=== PATIENT | female | born 1955 | race Hispanic/Latino ===

== ENCOUNTER 2023-07-14 08:37 | Observation (INO) | payer MEDICARE ==
[2023-07-08 10:49] LABS: Absolute Lymphocytes (CBC) 1.5 K/uL (0.7-4.9); Hematocrit 39.9 % (36.0-45.0); Lymphocytes % 24.6 % (15.3-44.8); MPV 8.7 fL (7.6-11.3); Platelets 212 thou/uL (152-406); RBC Red Blood Cell Count 4.34 M/uL (3.86-4.86)
[2023-07-08 10:50] LABS: Potassium 3.8 mEq/L (3.5-5.1)
--- NOTE | 2023-07-08 10:58 | RAD REPORT ---
EXAM DESCRIPTION: RAD - Chest Pa And Lat (2 Views) - 07/08/2023 9:35 am CLINICAL HISTORY: Pre op pending knee arthroplasty. Hypertension COMPARISON: No comparisons TECHNIQUE: PA and lateral views of the chest were obtained. FINDINGS: The lungs are clear. Heart size is normal and central vasculature is within normal limits. No pleural effusion or pneumothorax seen. No acute bony finding noted. IMPRESSION: No acute cardiopulmonary process.
[2023-07-08 11:05] LABS: Protime INR 0.99
--- NOTE | 2023-07-08 15:10 | EKG ---
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
[2023-07-14] MEDS ORDERED: NA CHLORIDE 0.9% 1,000 ML ONE (08:51)
[2023-07-14] MEDS ORDERED: CEFAZOLIN SODIUM 1 GM/VIAL ONE (08:51)
[2023-07-14] MEDS ORDERED: LIDOCAINE 1% MPF 5 ML VIAL ONE (09:27)
[2023-07-14] MEDS ORDERED: dexAMETHasone 10 MG/ML VIAL ONE ×2 (09:27→10:42)
[2023-07-14] MEDS ORDERED: FENTANYL CITR 100 MCG/2 ML ONE (09:28)
[2023-07-14] MEDS ORDERED: EPINEPHRINE 1 MG/ML VIAL ONE (09:28)
[2023-07-14] MEDS ORDERED: DEXMEDETOMIDINE HCL 200 MCG/2 ML VIAL ONE (09:28)
[2023-07-14] MEDS ORDERED: BUPIVACAINE 0.5% PF 10 ML VIAL ONE (09:28)
[2023-07-14] MEDS ORDERED: MAGNESIUM SULFATE 1 gm IVPB 1 GM/100 ML BAG IV ONE (09:29)
[2023-07-14] MEDS ORDERED: propofoL 200 MG/20 ML VIAL IV ONE ×3 (09:29→13:04)
[2023-07-14] MEDS ORDERED: BUPIVACAINE 0.25% PF 30 ML VIAL ONE (09:29)
[2023-07-14] MEDS ORDERED: Oxycodone HCl/Acetaminophen 5/325 MG TAB ONE (09:32)
[2023-07-14] MEDS ORDERED: ACETAMINOPHEN 500 MG TAB ONE (09:33)
[2023-07-14] MEDS ORDERED: CELECOXIB 100 MG CAPSULE ONE (09:33)
[2023-07-14] MEDS ORDERED: ONDANSETRON 4 MG/2 ML VIAL ONE ×2 (10:19→10:42)
[2023-07-14] MEDS ORDERED: ROCURONIUM 50 MG/5 ML VIAL IV ONE (10:42)
[2023-07-14] MEDS ORDERED: SUCCINYLCHOLINE 20 MG/ML (10 ML) IV ONE (10:59)
[2023-07-14] MEDS ORDERED: LIDOCAINE 2% MPF 5 ML VIAL ONE (11:42)
[2023-07-14] MEDS ORDERED: KETAMINE HCL IN 0.9 % NACL 50 MG/5 ML SYRINGE IV ONE (11:42)
[2023-07-14] MEDS ORDERED: TRANEXAMIC ACID 1,000 MG/10 ML VIAL IV ONE (11:47)
--- NOTE | 2023-07-14 13:24 | P.BOP ---
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
[2023-07-14] MEDS ORDERED: HYDROCODONE/APAP 7.5/325 MG TAB PO PRN (13:26)
[2023-07-14] MEDS ORDERED: ACETAMINOPHEN 325 MG TABLET PO PRN (13:26)
[2023-07-14] MEDS ORDERED: DOCUSATE NA 100 MG CAP PO PRN (13:26)
[2023-07-14] MEDS ORDERED: ONDANSETRON 4 MG/2 ML VIAL IV PRN (13:26)
[2023-07-14] MEDS ORDERED: TRAMADOL HCL 50 MG TAB PO PRN (13:29)
--- NOTE | 2023-07-14 14:22 | RAD REPORT ---
EXAM DESCRIPTION: RAD - Knee Left 2 View - 07/14/2023 2:08 pm CLINICAL HISTORY: Post Op COMPARISON: No comparisons FINDINGS: Left total knee arthroplasty is present. Mild soft tissue swelling is present in the regio n. Skin rachel are noted. A small amount of air is noted in the joint space. No unexpected immediate postoperative finding.
--- OUTSIDE RECORDS SUMMARY | 2023-07-14 15:03 | XMS REPORT | Continuity of Care Document ---
Author Name Unknown Address [address] [place] [address] [facility] Address [address] [place] [address] Care Team Providers Care Desulfurizer Operator Name Role Phone Pina Barlow Attending Clinician Unavailable Girffin Griggs Attending Clinician Unavailable [email or web address] Attending Clinician Denisse Villela Attending Clinician [email or web address]_S Admitting Clinician Francisco jeffers Payers Payer Name Policy Type Policy Number Effective Date Expirati on Date Source [facility] (MEDICARE REPLACEMENT HMO) [id number] 00:00:00 Problems Condition Name Condition Details Condition Category Status Onset Date Resolution Date Last Treatment Date Treating Clinician Comments Source [id number] Primary osteoarthr itis of left knee Problem [facility] Social History Social Habit Start Date Stop Date Quantity Comments Source History of Tobacco Use [facility] Sex Assigned At [facility] Smoking Status Start Date Stop Date Source Never Smoker [facility] Medications Ordered Medication Name Filled Medication Name Start Date Stop Date Current Medication? Ordering Clinician Indication Dosage Frequency Signature (SIG) Comments Components Source Hyalgan 20 mg Hyalgan 20 mg 02-10 00:00: 00 No 20mg [facility] Hyalgan 20 mg Hyalgan 20 mg 0 02-10 00:00: 00 No 20mg [facility] Hyalgan 20 mg Hyalgan 20 mg 0 02-03 00:00: 00 No 20mg [facility] Hyalgan 20 mg Hyalgan 20 mg 0 02-03 00:00: 00 No 20mg [facility] Hyalgan 20 mg Hyalgan 20 mg 0 02-03 00:00: 00 No 20mg [facility] Bupivicaine [place] Bupivicaine [place] 01-19 00:00: 00 No 2.5mg [facility] Hyalgan 20 mg Hyalgan 20 mg 0 01-19 00:00: 00 No 20mg [facility] Kenalog (Triamcinol one) Kenalog (Triamcinol one) 0 01-19 00:00: 00 No 40mg [facility] Bupivicaine [place] Bupivicaine [place] 01-19 00:00: 00 No 2.5mg [facility] Hyalgan 20 mg Hyalgan 20 mg 0 01-19 00:00: 00 No 20mg [facility] Kenalog (Triamcinol one) Kenalog (Triamcinol one) 0 01-19 00:00: 00 No 40mg [facility] Bupivicaine [place] Bupivicaine [place] 0 01-19 00:00: 00 No 2.5mg [facility] Hyalgan 20 mg Hyalgan 20 mg 0 - 00:00: 00 No 20mg [facility] Kenalog (Triamcinol one) Kenalog (Triamcinol one) 0 6- 00:00: 00 No 40mg [facility] Bupivicaine [place] Bupivicaine [place] 01-19 00:00: 00 No 2.5mg [facility] Hyalgan 20 mg Hyalgan 20 mg 01-19 00:00: 00 No 20mg [facility] Kenalog (Triamcinol one) Kenalog (Triamcinol one) 01-19 00:00: 00 No 40mg [facility] Lisinopril Lisinopril No Lisinopril Rosuvastati n Calcium Rosuvastati n Calcium No Rosuvastat in Calcium Aleve Aleve No Aleve Metformin & Diet Manage Prod Metformin & Diet Manage Prod No Metformin & Diet Manage Prod Aleve Aleve No Aleve Metformin & Diet Manage Prod Metformin & Diet Manage Prod No Metformin & Diet Manage Prod Lisinopril Lisinopril No Lisinopril Rosuvastati n Calcium Rosuvastati n Calcium No Rosuvastat in Calcium Aleve Aleve No Aleve Lisinopril Lisinopril No Lisinopril Rosuvastati n Calcium Rosuvastati n Calcium No Rosuvastat in Calcium Metformin & Diet Manage Prod Metformin & Diet Manage Prod No Metformin & Diet Manage Prod Metformin & Diet Manage Prod Metformin & Diet Manage Prod No Metformin & Diet Manage Prod Aleve Aleve No Aleve Rosuvastati n Calcium Rosuvastati n Calcium No Rosuvastat in Calcium Lisinopril Lisinopril No Lisinopril Vital Signs Vital Name Observation Time Observation Value Comments S ource height 2022-09-03 10:30:00 62 [in_i] Commo n [facility] weight 2022-09-03 10:30:00 170 [lb_av] Comm on [facility] temperature 2022-09-03 10:30:00 98.1 [degF] Com mon [facility] bmi 2022-09-03 10:30:00 31.09 kg/m2 Comm on [facility] blood pressure systolic 2022-09-03 10:30:00 140 mm[Hg] Common [facility] blood pressure diastolic 2022-09-03 10:30:00 90 mm[Hg] [facility] height 2022-02-10 15:45:00 62 [in_i] Commo n [facility] weight 2022-02-10 15:45:00 154.1 [lb_av] Co mmon [facility] temperature 2022-02-10 15:45:00 97.4 [degF] Com mon [facility] bmi 2022-02-10 15:45:00 28.18 kg/m2 Comm on [facility] blood pressure systolic 2022-02-10 15:45:00 132 mm[Hg] Common [facility] blood pressure diastolic 2022-02-10 15:45:00 79 mm[Hg] [facility] height 2022-02-03 15:00:00 62 [in_i] Commo n [facility] weight 2022-02-03 15:00:00 151 [lb_av] Comm on [facility] bmi 2022-02-03 15:00:00 27.62 kg/m2 Comm on [facility] blood pressure systolic 2022-02-03 15:00:00 110 mm[Hg] Common [facility] blood pressure diastolic 2022-02-03 15:00:00 70 mm[Hg] [facility] height 2022-01-19 10:00:00 62 [in_i] Commo n [facility] weight 2022-01-19 10:00:00 151.9 [lb_av] Co mmon [facility] temperature 2022-01-19 10:00:00 97.3 [degF] Com mon [facility] bmi 2022-01-19 10:00:00 27.78 kg/m2 Comm on [facility] blood pressure systolic 2022-01-19 10:00:00 111 mm[Hg] Common [facility] blood pressure diastolic 2022-01-19 10:00:00 69 mm[Hg] [facility] Encounters Start Date/Time End Date/Time Encounter Type Admission Type Attending Clinicians Care Facility Care Department Encounter ID Source 2022-09-04 09:18:03 Outpatient Pina Barlow [facility] [id number] [facility] 2022-09-03 14:39:02 Outpatient Pina Barlow [facility] [id number] [facility] 2022-09-01 15:40:01 Outpatient Pina Barlow [facility] [id number] [facility] 2022-08-31 11:08:03 Outpatient Pina Barlow [facility] [id number] [facility] 2022-08-13 10:32:01 Outpatient Griffin Griggs [facility] [id number] [facility] 2022-02-03 14:53:03 Outpatient Griffin Griggs [facility] [id number] [facility] 2022-01-19 09:53:03 Outpatient [facility] [id number] [facility] 2023-06-08 00:00:00 2023-06-08 00:00:00 Outpatient [email or web address]_Ka diyala_S [facility] [id number] [facility] 2023-04-15 19:00:00 2023-04-15 19:20:00 Care [facility] Denisse Escalante [id number] [facility] 2022-12-28 18:50:00 2022-12-28 19:10:00 Care [facility] - [facility] Denisse Escalante [id number] [facility] 2022-12-12 00:00:00 2022-12-12 00:00:00 Outpatient DMG [facility] [id number] [facility] 2022-09-25 19:00:00 2022-09-25 20:30:00 PAULETTE Escalante [id number] [facility] 2022-09-03 00:00:00 2022-09-03 00:00:00 OFFICE VISIT ESTAB PT LEVEL 4 STLMLC STLMLC [id number] [facility] 2022-05-30 00:00:00 2022-05-30 00:00:00 Outpatient DMG [facility] [id number] [facility] 2022-02-10 00:00:00 2022-02-10 00:00:00 (IN/ASP) INJ ASP STLMLC STLMLC [id number] [facility] 2022-02-03 00:00:00 2022-02-03 00:00:00 (IN/ASP) INJ ASP STLMLC STLMLC [id number] [facility] 2022-01-19 00:00:00 2022-01-19 00:00:00 OFFICE VISIT NEW PT LEVEL 3 STLMLC STLMLC [id number] [facility]
[2023-07-14 15:27] VITALS: O2SAT 98
[2023-07-14] MEDS ORDERED: HYDROMORPHONE HCL 1 MG/ML INJ ONE (15:27)
[2023-07-14] MEDS: CEFAZOLIN 1 GM in NA CHLORIDE 0.9% 50 ML IVPB SCH (18:41)
[2023-07-14] MEDS: METFORMIN HCL 500 MG TAB PO SCH (18:41)
[2023-07-14 19:58] VITALS: BMI 29.6
[2023-07-14] MEDS ORDERED: ROSUVASTATIN 10 MG TAB PO SCH (21:00)
--- NOTE | 2023-07-14 21:46 | P.OP ---
Preoperative diagnosis: left knee osteoarthritis Postoperative diagnosis: same Primary procedure: left total knee arthroplasty Anesthesia: general Estimated blood loss: 50 cc Specimen: left knee bone remnants Findings: see dictation Operative Technique: Indication For Procedure: Fany is a 68 year-old female presenting to my clinic with signs, symptoms and x-ray findings consistent with severe left knee osteoarthritis. I discussed with the patient at length risks and benefits associated with operative and nonoperative treatment. She had failed conservative treatment measures and had significant difficulties with ADLs secondary to her pain. We discussed operative treatment and elected to proceed with left total knee arthroplasty. She expressed understanding and elected to proceed with operative treatment. Description Of Procedure: After informed consent was obtained, the patient was identified in the preoperative holding area. The left lower extremity was marked. The patient was then taken to the PACU where she underwent a left lower extremity adductor canal block performed by Anesthesia. She was then taken to the operating room, transferred to the operating table in supine fashion, and placed under general anesthesia. The left lower extremity was then prepped and draped in usual sterile fashion. A time-out was initiated. The correct patient and procedure were confirmed and identified. The patient did receive her preoperative prophylactic antibiotics. The left lower extremity was then exsanguinated and tourniquet was inflated to 300 mmHg. Approximately 15 cm longitudinal incision was made centered over the anterior aspect of the left knee. Dissection was then taken to the extensor mechanism and a medial parapatellar arthrotomy was performed. The patella was everted and dislocated laterally and the knee was flexed in the fat pad. Medial and lateral meniscus and ACL were all excised exposing the distal femur. Excess hypertrophic synovi um was also excised within the suprapatellar pouch. The patient had an MRI of her left knee preoperatively for surgical planning and creation of cutting blocks. The cutting block was then placed over the distal femur and pins were then placed. The distal femoral cutting block was then placed over the pins. An kiko wing was then used to ensure proper depth cut and the distal femur was then cut. The chamfer cutting guide was then placed over the distal end of the femur. Anterior, posterior cuts as well as anterior and posterior chamfer cuts were then made again confirming proper depth of the cut using an Kiko wing. Excess bone remnants were then sent to pathology for further evaluation. Next, attention was taken to the proximal tibia. A tibial jig and tibial cutting block was then placed on proximal aspect of the left tibia and locked into position. Pins were then placed and alignment guide was then used to confirm proper alignment of the cut and then coronal and sagittal planes. Once this was confirmed, the cutting jig was placed over the pins and the proximal tibia was cut. Sizing trays were then selected and size 10 mm spacer was used and there was good overall balance in flexion and extension. Next, the trial implants were then placed using the size 5 standard CR femur and a size D tibia and an 11 mm CR poly. There was overall good range of motion and good stability. The trial implants were then removed. The wound was then irrigated thoroughly with normal saline and the knee was then injected with 20 cc of 0.5% Marcaine both in the posterior capsule and medial and lateral gutters as well as quadriceps tendon and periosteum. The tibia was then punched. The femur was drilled. The cement was then prepared on the back table. Cement was then placed first on the tibial surface followed by size D tibia. Excess cement was removed with [place] elevators. Size 5 standard CR femur was then placed on the distal femur after cement was placed on the distal femur. Excess cement was then removed and a size 11 mm CR trial poly was then placed. The knee was held in extension as the cement hardened. Undersurface of the patella was prepared debriding osteophytes using rongeurs. Cement was placed on the undersurface of the patella after it was cut and a size 29 patella was placed. Once the cement was hardened, the knee was ranged, there was good overall stability both in flexion, extension and as well as stability with varus and valgus stresses. Trial poly was then removed and a size 11 mm CR poly was then placed and locked into position. The knee was then ranged again. There was good overall range of motion both for flexion and extension with good stability. The wound was then irrigated again thoroughly with normal saline using pulse lavage. Tourniquet was let down. Hemostasis was achieved using Bovie electrocautery. Extensor mechanism was then approximated using a #1 Vicryl both in interrupted and running fashion. The fascia was then approximated using 0 Vicryl. Subcutaneous tissue was approximated with a 2-0 Vicryl. Skin was approximated using rachel. Sterile dressings were applied. The patient was awakened and transferred back in stable condition Complications: None Implants: Biomet Chris Persona 5 CR femur, D tibia, 29 patella, 10 CR poly Fluids & blood products: per anesthesia record; TT: 63 mins @ 300 mmHg Transferred to: Recovery Room Condition: Good
[2023-07-15] MEDS: CEFAZOLIN 1 GM in NA CHLORIDE 0.9% 50 ML IVPB SCH ×2 (00:30→09:21)
[2023-07-15] MEDS ORDERED: ENOXAPARIN 30 MG/0.3 ML SQ SCH (06:00)
[2023-07-15 07:29] LABS: Hematocrit 34.7 % (36.0-45.0)
[2023-07-15] MEDS: METFORMIN HCL 500 MG TAB PO SCH (08:59)
[2023-07-15] MEDS ORDERED: Dapagliflozin Propanediol [Farxiga] 10 MG Tablet PO SCH (09:00)
[2023-07-15] MEDS ORDERED: VITAMIN D 1000 UNIT TAB PO SCH (09:00)
[2023-07-15] MEDS ORDERED: CELECOXIB 100 MG CAPSULE PO SCH (09:00)
--- NOTE | 2023-07-15 10:37 | P.DS ---
Admission Date: 07/14/23 Discharge Date: 07/15/23 Disposition: DC HOME/HOME HEALTH CARE Discharge Condition: GOOD Reason for Admission: L TKA Consultations: none Procedures: left TKA 07/14/2023 Brief History of Present Illness: Lali is a 68-year-old female that was admitted postoperatively after left total knee arthroplasty on July 14, 2023. Hospital Course: Patient was admitted to floor in stable condition postoperatively. Physical therapy was consulted to aid with mobilization. She mobilize safely on July 15, 2023 with her pain control. She will be discharged with home health physical therapy. She was given Xarelto to take at home for DVT prophylaxis. She will follow-up in 2 weeks for staple removal. Vital Signs/Physical Exam: Temp Pulse Resp BP Pulse Ox 98.1 F 89 18 135/60 94 07/15/23 07:47 07/15/23 07:47 07/15/23 07:47 07/15/23 07:47 07/15/23 07:47 Laboratory Data at Discharge: WBC 6.10 thou/uL (4.3-10.9) 07/08/23 09:25 Hgb 11.6 g/dL (12.0-15.0) L D 07/15/23 06:40 Hct 34.7 % (36.0-45.0) L 07/15/23 06:40 Plt Count 212 thou/uL (152-406) 07/08/23 09:25 PT 10.9 SECONDS (9.5-12.5) 07/08/23 09:25 INR 0.99 07/08/23 09:25 APTT 37.6 SECONDS (24.3-36.9) H 07/08/23 09:25 Sodium 143 mEq/L (136-145) 07/08/23 09:25 Potassium 3.8 mEq/L (3.5-5.1) 07/08/23 09:25 BUN 13 mg/dL (7-18) 07/08/23 09:25 Creatinine 0.72 mg/dL (0.55-1.02) 07/08/23 09:25 Glucose 137 mg/dL (74-106) H 07/08/23 09:25 Home Medications: Cholecalciferol (Vitamin D3) [Vitamin D3] 2,000 unit PO DAILY 07/08/23 Cyanocobalamin [Vitamin B-12*] 1,000 mcg PO DAILY 07/08/23 Dapagliflozin Propanediol [Farxiga] 10 mg PO DAILY 07/08/23 Metformin HCl 1,000 mg PO BID 07/08/23 Naproxen Sodium [Aleve] 1 - 2 tab PO Q6HP PRN 07/08/23 Rosuvastatin Calcium 20 mg PO DAILY 07/08/23 Hydrocodone 7.5/APAP 325 [[place] 7.5/325 mg*] 1 tab PO Q4H PRN tab 07/15/23 Physician Discharge Instructions: Keep dressing clean, dry and intact. Use bilateral thigh-high YASMINE hose for 2 weeks to aid with swelling. Begin Xarelto tomorrow, July 16, 2023 with breakfast and take once daily. Follow-up with Dr. Logan in 2 weeks for staple removal. Diet: ADA Activity: Weight bearing as tolerated Followup: Michael Logan MD [ACTIVE - CAN ADMIT] - 1-2 Weeks CAROL GREEN [Primary Care Provider] -
[2023-07-15 11:14] VITALS: BP 127/60; TEMP 98.6
[2023-07-15] MEDS ORDERED: PNEUMOCOCCAL VACCINE 0.5 ML IMVAC ONE (12:00)
[2023-07-15] MEDS ORDERED: INFLUENZA VACCINE (for 6+ mo) 0.5 ML DOSE IMVAC ONE (12:00)
== END 2023-07-15 13:50 | disposition home health service (06) ==
LOC: OR 08:37 → 4TH 15:00
PROVIDERS: ADMIT Orthopaedic Surgery Sports Medicine; ATTEND Orthopaedic Surgery Sports Medicine
PROC: 0SRD069 Replacement of Left Knee Joint with Oxidized Zirconium on Polyethylene Synthetic Substitute, Cemented, Open Approach (ICD-10-PCS; principal; 2023-07-14 11:00)
DX: M17.12 Unilateral primary osteoarthritis, left knee (principal); M25.562 Pain in left knee; E11.9 Type 2 diabetes mellitus without complications; I10 Essential (primary) hypertension; E78.00 Pure hypercholesterolemia, unspecified
CPT/HCPCS: 93005; 85025; 80048; 36415 ×3; 85610; 82947 ×2; 88304; 88311; 85730; 85018 ×2; 85014 ×2; 71046; 73560; 97110; 97116; 97139; 97161; 97530; 94010; 27447; G0379; C1776; J2704 ×4; J3475; J2001 ×2; J1650; J3010; J1100 ×2; J0171; J1170; J2405 ×3; J7030; J0690 ×4; G0378 ×2; 88305